=== PATIENT | male | born 1955 ===

== ENCOUNTER 2018-07-05 11:40 | Emergency (ER) | payer MEDICARE ==
--- NOTE | 2018-07-05 11:44 | PDOC ---
History of Present Illness - General Chief Complaint: Injury Stated Complaint: RIGHT BUTTOCK PAIN AFTER A FALL Time Seen by Provider: 07/05/18 11:42 History Source: Patient Exam Limitations: No Limitations - History of Present Illness Initial Comments: 07/05/18 11:44 Mr Sharma is a 63 yo M who presents to the ER with a complaint of buttock pain Pt states that 1 week ago, he was shoveling snow, slipped backwards, landing on his bottom No head trauma, No LOC Pt initially was pain free but then over the past week, pain has worsened Pt presents today because he thought he should be pain free by now He denies pain in the hips, legs, back He does have pain when sitting on his bottom, having a bowel movement He has been taking Aleeve for pain with minimal relief PMH: HTN, HLD, CAD PSH: PCI and stent 10 years ago Meds: Metoprolol, Lisinopril, Asa ALL: NKDA Social: Review of Systems GENERAL/CONSTITUTIONAL: No: fever, chills, weakness, loss of appetite. HEAD, EYES, EARS, NOSE AND THROAT: No: change in vision, ear pain, discharge, sore throat, throat swelling. CARDIOVASCULAR: No: chest pain, lightheadedness, palpitations, syncope RESPIRATORY: No: cough, shortness of breath, wheezing, hemoptysis, stridor. GASTROINTESTINAL: No: nausea, vomiting, abdominal pain, diarrhea GENITOURINARY: No: dysuria, hematuria, frequency, urgency, flank pain. MUSCULOSKELETAL: Yes: Buttock pain No: back pain, neck pain SKIN: No: lesions, pallor, rash or easy bruising. NEUROLOGIC: No: headache, vertigo, paresthesias, weakness ENDOCRINE: No: unexplained weight gain or loss HEMATOLOGIC/LYMPHATIC: No: anemia, easy bleeding, swelling nodes Physical Exam GENERAL: The patient is in no acute distress. HEAD: Normal EYES: PERRLA, EOMI, sclera anicteric, conjunctiva clear. ENT: Ears normal, nares patent, oropharynx clear without exudates. Moist mucous membranes. NECK: Normal range of motion, supple LUNGS: Breath sounds equal, clear to auscultation bilaterally. No wheezes, and no crackles. HEART:Regular rate and rhythm, normal S1 and S2 without murmur, rub or gallop. ABDOMEN: Soft, nontender, normoactive bowel sounds. EXTREMITIES: Normal range of motion, no edema. NEUROLOGICAL: Cranial nerves II through XII grossly intact. Normal speech. No focal neurological deficits. MUSCULOSKELETAL: Coccyx exquisitely tender to palpation SKIN: Warm, Dry, normal turgor, no rashes or lesions noted. 07/05/18 11:48 07/05/18 11:59 Past History - Past Medical History Allergies/Adverse Reactions: Allergies Allergy/AdvReac Type Severity Reaction Status Date / Time No Known Allergies Allergy Verified 07/05/18 11:42 Home Medications: Ambulatory Orders Aspirin [Aspirin EC] 81 mg PO HS 07/05/18 Lidocaine 5% Patch [Lidoderm Patch -] 1 patch TP DAILY PRN #30 patch 07/05/18 Metoprolol Succinate [Toprol Xl] 25 mg PO HS 07/05/18 Naproxen Sodium 220 mg PO BID PRN #30 tablet 07/05/18 Polyethylene Glycol 3350 [Miralax (For Daily Use) -] 17 gm PO DAILY PRN #1 bottle 07/05/18 Simvastatin 20 mg PO HS 07/05/18 traMADol HCL [Ultram] 50 mg PO BID #10 tablet MDD 2 07/05/18 Medical Decision Making - Medical Decision Making 07/05/18 12:01 Fall 1 week ago Likely coccyx fracture Will do Xray Will give motrin Will plan to discharge to home Pain medication 07/05/18 12:41 Xray - possible fracture seen Pt asked to take pain meds and purchase a Doughnut pillow 07/05/18 12:51 *DC/Admit/Observation/Transfer Diagnosis at time of Disposition: Coccyx contusion Qualifiers: Encounter type: initial encounter Qualified Code(s): S30.0XXA - Contusion of lower back and pelvis, initial encounter - Discharge Dispostion Disposition: HOME Condition at time of disposition: Stable Decision to Admit order: No - Prescriptions Prescriptions: Lidocaine 5% Patch [Lidoderm Patch -] 1 patch TP DAILY PRN #30 patch PRN Reason: Pain Naproxen Sodium 220 mg PO BID PRN #30 tablet PRN Reason: Pain Polyethylene Glycol 3350 [Miralax (For Daily Use) -] 17 gm PO DAILY PRN #1 bottle PRN Reason: Constipation traMADol HCL [Ultram] 50 mg PO BID #10 tablet MDD 2 - Referrals Referrals: Shivam Umanzor MD [Primary Care Provider] - - Patient Instructions Printed Discharge Instructions: DI for Coccyx Fracture, DI for Coccydynia Additional Instructions: Thank you for coming in to the ER today It appears you injured your Coccyx when you fell Please take pain medications as prescribed Please get a DOUGHNUT pillow from the pharmacy, it will be more comfortable to sit on this Return to the emergency department immediately with ANY new, persistent or worsening symptoms. Continue any medications as previously prescribed by your physician. You should follow up with your primary doctor as soon as possible regarding today's emergency department visit. . Please make sure your doctor reviews the results of your emergency evaluation. Thank you for coming to the [facility] today for your care. It was a pleasure to see you today. Please note that your evaluation is INCOMPLETE until you follow-up with your doctor. - Post Discharge Activity
[2018-07-05] MEDS ORDERED: IBUPROFEN 600 MG TABLET (FP) PO ONE ×2 (11:57→11:59)
[2018-07-05 12:11] VITALS: BP 123/80; PULSE 67; TEMP 97.5; BMI 26.3
== END 2018-07-05 12:55 | disposition home or self-care (01) ==
LOC: FER 11:40
DX: S30.0XXA Contusion of lower back and pelvis, initial encounter (principal); W00.0XXA Fall on same level due to ice and snow, initial encounter; Y93.H1 Activity, digging, shoveling and raking; Y92.89 Other specified places as the place of occurrence of the external cause; I10 Essential (primary) hypertension; E78.5 Hyperlipidemia, unspecified; I25.10 Atherosclerotic heart disease of native coronary artery without angina pectoris
CPT/HCPCS: 72220-TC-FY; 99282-25